=== PATIENT | male | born 1950 | race Caucasian/White ===

== ENCOUNTER → 2018-09-17 | Outpatient (CLI) | payer OTHER | LOC: LAB 11:21 | PROVIDERS: ATTEND Internal Medicine Critical Care Medicine | DX: R06.00 Dyspnea, unspecified (principal); J30.9 Allergic rhinitis, unspecified; R06.89 Other abnormalities of breathing; R05 Cough; R91.8 Other nonspecific abnormal finding of lung field; J98.4 Other disorders of lung; J43.9 Emphysema, unspecified | CPT/HCPCS: 36600 ==

== ENCOUNTER 2018-10-29 12:51 | Emergency (ER) | payer MEDICARE, OTHER ==
[~2018-10-29] VITALS: Ht 186.7 cm; Wt 102.1 kg
[2018-10-29] MEDS ORDERED: morphine INJ 10 MG/ML 1ML (SYR OR VIAL) IVP STA ×2 (13:31→14:15)
[2018-10-29] MEDS ORDERED: ONDANSETRON 4 MG/2 ML (SDV) Z0FRAN IVP ONE (13:45)
[2018-10-29] MEDS ORDERED: DEXAMETHASONE 4 MG/ML SDV (DECADRON) IV ONE (14:00)
--- NOTE | 2018-10-29 14:03 | Diagnostic Imaging Report ---
PROCEDURE: CT head without contrast. TECHNIQUE: Multiple contiguous axial images were obtained through the brain without the use of intravenous contrast. Auto Exposure Controls were utilized during the CT exam to meet ALARA standards for radiation dose reduction. INDICATION: Headache and vomiting. No comparison available. Findings: There are multifocal regions of abnormal vasogenic edema within the brain. There is an apparent mass within this vasogenic edema within the posterior right temporal lobe measuring 12 mm. There also appears to be a mass within the left centrum semiovale the left frontal lobe measuring 11 mm. There is likely a mass demonstrated within the left occipital lobe given the presence of vasogenic edema at that location. If no clinical contraindications, MRI is recommended for further assessment. The primary consideration is that of metastatic disease. There additionally are likely chronic microvascular changes present with no white matter. There is mild age-appropriate volume loss. There is no midline shift. There is no hydrocephalus. Posterior fossa demonstrates an apparent small mass within the right cerebellum with some adjacent vasogenic edema. There is no significant distortion of the fourth ventricle. Mastoid air cells are clear. The paranasal sinuses clear. Orbital contents unremarkable. No definitive calvarial lesions are evident. Impression: 1. Multifocal intracranial mass lesions with surrounding vasogenic edema. Given the multiplicity of lesions, this is favored to be reflective of metastatic disease. If the patient has no clinical contraindication, assessment with MRI with and without contrast is recommended. 2. CT imaging of the chest, abdomen and pelvis could also be considered to evaluate for a primary. Findings were called to Dr. Swan in the [place] emergency department at 1:57 PM. Dictated by: Dictated on workstation # [id number]
[2018-10-29] MEDS ORDERED: DEXAMETHASONE 10 MG/ML (DECADRON) 1 ML VIAL ONE (14:12)
[2018-10-29 14:14] LABS: HEMATOCRIT 35 % (40-54); HEMOGLOBIN 10.7 G/DL (13.3-17.7); MEAN CORPUSCULAR HEMOGLOBIN 26 PG (25-34); MEAN CORPUSCULAR HGB CONC 31 G/DL (32-36); MEAN CORPUSCULAR VOLUME 86 FL (80-99); MEAN PLATELET VOLUME 9.7 FL (7.4-10.4); NEUTROPHILS % (AUTO) 78 % (42-75); PLATELET COUNT 444 10^3/uL (130-400); RED CELL DISTRIBUTION WIDTH 14.3 % (10.0-14.5); WHITE BLOOD COUNT 15.8 10^3/uL (4.3-11.0)
[2018-10-29 14:15] LABS: BASOPHILS # (AUTO) 0.1 10^3/uL (0.0-0.1); BASOPHILS % (AUTO) 1 % (0-10); EOSINOPHILS # (AUTO) 0.1 10^3/uL (0.0-0.3); EOSINOPHILS % (AUTO) 1 % (0-10); LYMPHOCYTES # (AUTO) 1.9 X 10^3 (1.0-4.0); LYMPHOCYTES % (AUTO) 12 % (12-44); MONOCYTES # (AUTO) 1.4 X 10^3 (0.0-1.0); MONOCYTES % (AUTO) 9 % (0-12); NEUTROPHILS # (AUTO) 12.3 X 10^3 (1.8-7.8)
[2018-10-29] MEDS ORDERED: DEXAMETHASONE 10 MG/ML (DECADRON) 1 ML VIAL IV ONE (14:15)
[2018-10-29 14:24] LABS: PROTHROMBIN TIME PATIENT 13.6 SEC (12.2-14.7)
[2018-10-29 14:31] LABS: BAND NEUTROPHILS 1 %; BASOPHILS % (MANUAL) 2 %; BUN/CREATININE RATIO 20; CARBON DIOXIDE 15 MMOL/L (21-32); CHLORIDE 102 MMOL/L (98-107); CREATININE SERUM 0.89 MG/DL (0.60-1.30); EOSINOPHILS % (MANUAL) 0 %; GFR ESTIMATED > 60; GLUCOSE 106 MG/DL (70-105); LYMPHOCYTES % (MANUAL) 14 %; MONOCYTES % (MANUAL) 7 %; NEUTROPHILS % (MANUAL) 76 %; POTASSIUM 3.9 MMOL/L (3.6-5.0); RBC MORPH NORMAL; SODIUM 138 MMOL/L (135-145)
--- NOTE | 2018-10-29 15:21 | NUR ---
[facility] accepted pt to transfer to [facility].
--- NOTE | 2018-10-29 15:22 | NUR ---
SPO2 88-89%, so pt placed on 2 liters via nasal canula
--- NOTE | 2018-10-29 15:34 | ED Headache ---
General Chief Complaint: Head/Cervical Problems Stated Complaint: HEADACHE,VOMITING Nursing Triage Note: Pt arrived by private vehicle for chief complaint of headache and vomiting. Pt is alert and oriented at time of arrival, but needed assistance getting out of car and wheelchair was used. Pt stated he had slight headache a few days ago and then it got worse. Pt stated his frontal head hurts. He has vomited once today. He took 6 excedrin migraine to try to help headache. Pt stated pain is a 7/8. Nursing Sepsis Screen: No Definite Risk Source: patient, family Exam Limitations: no limitations History of Present Illness Date Seen by Provider: October 29, 2018 Time Seen by Provider: 13:10 Initial Comments This is a 68 y/o m who presents to the ED for evaluation of headache. Pt reports progressive headache over the past 2 days, localized behind both eyes, pressure/achy, 8/10. Has taken Excedrin migraine x6 tabs in the past 6-8 hrs with no relief. no photophobia no vision changes. Denies previous history of headaches/migraines. Progressive intractable nausea/vomiting since earlier this am. No aggravating/alleviating factors. Allergies and Home Medications Allergies Coded Allergies: No Known Drug Allergies (Unverified , 10/29/18) Patient Home Medication List Home Medication List Reviewed: Yes Review of Systems Review of Systems Constitutional: No chills, No fever Eyes: Denies Blindness, Denies Blurred Vision, Denies Pain, Denies Photophobia Respiratory: No cough, No short of breath, No stridor, No wheezing Cardiovascular: No chest pain, No edema, No syncope Gastrointestinal: No abdominal pain; nausea, vomiting Genitourinary: No dysuria, No frequency, No hematuria Musculoskeletal: No back pain, No gout, No joint pain, No muscle pain, No muscle stiffness Skin: No pruritus, No rash Psychiatric/Neurological: Denies Anxiety, Denies Depressed; Headache; Denies Numbness, Denies Paresthesia, Denies Seizure, Denies Tingling, Denies Weakness Past Llhjmrq-Irhmuj-Eqxxir Hx Patient Social History Alcohol Use: Denies Use Recreational Drug Use: No Smoking Status: Former Smoker 2nd Hand Smoke Exposure: No Recent Foreign Travel: No Contact w/Someone Who Travel: No Recent Infectious Disease Expo: No Recent Hopitalizations: No Physical Abuse: No Sexual Abuse: No Mistreated: No Fear: No Seasonal Allergies Seasonal Allergies: No Past Medical History Surgeries: Yes (right half lobectomy ) Appendectomy, Tonsillectomy Respiratory: Yes (right lobectomy) Cardiac: Yes High Cholesterol, Hypertension Neurological: Yes Seizure Disorder Genitourinary: Yes Prostate Problems Gastrointestinal: Yes Gastroesophageal Reflux Musculoskeletal: No Endocrine: No HEENT: No Cancer: No Psychosocial: No Integumentary: No Blood Disorders: No Physical Exam Vital Signs Vital Signs - First Documented 10/29/18 10/29/18 13:09 15:22 Temp 97.2 Pulse 86 Resp 24 B/P (MAP) 161/69 (99) Pulse Ox 96 O2 Delivery Room Air O2 Flow Rate 2.00 Capillary Refill : Less Than 3 Seconds Height, Weight, BMI Height: 6'1.50" Weight: 225lbs. 0oz. 102.275592sz; BMI Method:Stated General Appearance: WD/WN, other (Appears stated age, actively vomiting throughout H&P. ) HEENT: PERRL/EOMI Neck: non-tender, full range of motion Cardiovascular: regular rate, rhythm, no edema, no murmur Respiratory: lungs clear, normal breath sounds, no respiratory distress Gastrointestinal: normal bowel sounds, soft Extremities: normal range of motion Psychiatric: alert, oriented x 3 Crainal Nerves: No normal hearing (chronically hearing impaired. No hearing aids in place); normal speech, PERRL; No facial asymmetry, No facial droop, No facial paresthesias, No facial weakness, No tongue deviation to R, No tongue deviation to L Coordination/Gait: normal finger to nose, other (Unable to evaluate gait 2/2 intractable vomiting ) Motor/Sensory: no motor deficit, no sensory deficit Skin: normal color, warm/dry Progress/Results/Core Measures Results/Orders Lab Results Laboratory Tests Test 10/29/18 14:00 Range/Units White Blood Count 15.8 H 4.3-11.0 10^3/uL Red Blood Count 4.06 L 4.35-5.85 10^6/uL Hemoglobin 10.7 L 13.3-17.7 G/DL Hematocrit 35 L 40-54 % Mean Corpuscular Volume 86 80-99 FL Mean Corpuscular Hemoglobin 26 25-34 PG Mean Corpuscular Hemoglobin Concent 31 L 32-36 G/DL Red Cell Distribution Width 14.3 10.0-14.5 % Platelet Count 444 H 130-400 10^3/uL Mean Platelet Volume 9.7 7.4-10.4 FL Neutrophils (%) (Auto) 78 H 42-75 % Lymphocytes (%) (Auto) 12 12-44 % Monocytes (%) (Auto) 9 0-12 % Eosinophils (%) (Auto) 1 0-10 % Basophils (%) (Auto) 1 0-10 % Neutrophils # (Auto) 12.3 H 1.8-7.8 X 10^3 Lymphocytes # (Auto) 1.9 1.0-4.0 X 10^3 Monocytes # (Auto) 1.4 H 0.0-1.0 X 10^3 Eosinophils # (Auto) 0.1 0.0-0.3 10^3/uL Basophils # (Auto) 0.1 0.0-0.1 10^3/uL Neutrophils % (Manual) 76 % Lymphocytes % (Manual) 14 % Monocytes % (Manual) 7 % Eosinophils % (Manual) 0 % Basophils % (Manual) 2 % Band Neutrophils 1 % Blood Morphology Comment NORMAL Prothrombin Time 13.6 12.2-14.7 SEC INR Comment 1.0 0.8-1.4 Activated Partial Thromboplast Time 34 24-35 SEC Sodium Level 138 135-145 MMOL/L Potassium Level 3.9 3.6-5.0 MMOL/L Chloride Level 102 98-107 MMOL/L Carbon Dioxide Level 15 L 21-32 MMOL/L Anion Gap 21 H 5-14 MMOL/L Blood Urea Nitrogen 18 7-18 MG/DL Creatinine 0.89 0.60-1.30 MG/DL Estimat Glomerular Filtration Rate > 60 BUN/Creatinine Ratio 20 Glucose Level 106 H 70-105 MG/DL Calcium Level 9.0 8.5-10.1 MG/DL My Orders Orders - KEITHLY,JOHANA T DO Ct Head Wo (10/29/18 13:31) Morphine Injection (Morphine Injection (10/29/18 13:31) Ondansetron Injection (Zofran Injectio (10/29/18 13:45) Cbc And Manual Diff (10/29/18 13:34) Basic Metabolic Panel (10/29/18 13:34) Partial Thromboplastin Time (10/29/18 13:34) Protime With Inr (10/29/18 13:34) Dexamethasone Injection (Decadron Inject (10/29/18 14:15) Morphine Injection (Morphine Injection (10/29/18 14:15) Dexamethasone Injection (Decadron Inject (10/29/18 14:12) Medications Given in ED Current Medications Medications Dose Ordered Sig/Emma Route Start Time Stop Time Status Last Admin Dose Admin Dexamethasone Sodium Phosphate 10 mg ONCE ONCE IV 10/29/18 14:15 10/29/18 14:16 DC 10/29/18 14:25 10 MG Ondansetron HCl 8 mg ONCE ONCE IVP 10/29/18 13:45 10/29/18 13:46 DC 10/29/18 13:57 8 MG Vital Signs/I&O 10/29/18 10/29/18 10/29/18 13:09 14:38 15:22 Temp 97.2 100.4 Pulse 86 86 Resp 24 22 B/P (MAP) 161/69 (99) 167/71 (103) Pulse Ox 96 95 94 O2 Delivery Room Air Room Air Nasal Cannula O2 Flow Rate 2.00 Blood Pressure Mean: 103 Progress Progress Note : Progress Note 1410: notified by Radiology of CT as above. Pt continues to have periods of vomiting despite medications. Will continue to medicate. No focal neurological findings. Will admit for continued evaluation/symptom control. Pt and family requesting transfer to [facility]. Pt will require NSG eval and these capability are available locally. Discussed with Dr. Servin in ED at [facility] who accepted the pt. Pt given IV Decadron. Pt has been hemodynamically stable while in the ED. 1547: Transportation arranged. Pt leaving shortly. Symptoms controlled. Diagnostic Imaging Comments CT Head Multifocal intracranial mass lesions with surrounding vasogenic edema. Given the multiplicity of lesions, this is favored to be reflective of metastatic disease. If the patient has no clinical contraindiciation, assessment with MRI with and without contrast is recommended. CT imaging of the chest, abdomen and pelvis could also be considered to evaluate for a primary. Departure Impression Primary Impression: Headache Additional Impression: Brain metastases Disposition: XFER SHT-TRM HOSP Condition: Improved Transfer Time Spoke to Accepting Phy: 15:48 Transfer Progress Notes leaving with transportation Departure-Patient Inst. Referrals: NO,LOCAL PHYSICIAN (PCP/Family) Primary Care Physician JOHANA GONZALEZ DO October 29, 2018 15:34
[2018-10-29 15:39] VITALS: BP 138/51
--- NOTE | 2018-10-29 15:59 | NUR ---
Report was given to [facility] at this time. Care was transferred.
--- NOTE | 2018-10-29 16:01 | NUR ---
Call to Shyla LARSEN, reported that [facility] is in route with pt departing now.
== END 2018-10-29 15:59 | disposition short-term general hospital (02) ==
LOC: EDUNIT# 12:51 → ER FS 12:52
DX: R51 Headache (principal); C71.9 Malignant neoplasm of brain, unspecified; C79.9 Secondary malignant neoplasm of unspecified site; E78.00 Pure hypercholesterolemia, unspecified; I10 Essential (primary) hypertension; G40.909 Epilepsy, unspecified, not intractable, without status epilepticus; K21.9 Gastro-esophageal reflux disease without esophagitis; Z86.69 Personal history of other diseases of the nervous system and sense organs; Z87.891 Personal history of nicotine dependence; Z90.49 Acquired absence of other specified parts of digestive tract; Z90.89 Acquired absence of other organs; Z90.2 Acquired absence of lung [part of]
CPT/HCPCS: 36415; 70450; 80048; 85007; 85027; 85610; 85730; 96374; 96375

== ENCOUNTER 2018-11-21 09:37 | Emergency (ER) | payer MEDICARE, OTHER ==
[~2018-11-21] VITALS: Ht 188 cm; Wt 90.7 kg
[2018-11-21] MEDS ORDERED: HYDROcodone/APAP 5 MG/325 MG (LORTAB) TAB ONE (10:19)
[2018-11-21 11:35] VITALS: BP 103/44
[2018-11-21 13:08] LABS: HEMATOCRIT 30 % (40-54); HEMOGLOBIN 9.3 G/DL (13.3-17.7); LYMPHOCYTES % (AUTO) 18 % (12-44); MEAN CORPUSCULAR HEMOGLOBIN 26 PG (25-34); MEAN CORPUSCULAR HGB CONC 31 G/DL (32-36); MEAN CORPUSCULAR VOLUME 84 FL (80-99); MEAN PLATELET VOLUME 9.9 FL (7.4-10.4); MONOCYTES % (AUTO) 12 % (0-12); NEUTROPHILS % (AUTO) 67 % (42-75); PLATELET COUNT 351 10^3/uL (130-400); WHITE BLOOD COUNT 7.8 10^3/uL (4.3-11.0)
[2018-11-21 13:09] LABS: BASOPHILS % (AUTO) 1 % (0-10); EOSINOPHILS # (AUTO) 0.1 10^3/uL (0.0-0.3); EOSINOPHILS % (AUTO) 2 % (0-10); LYMPHOCYTES # (AUTO) 1.4 X 10^3 (1.0-4.0); NEUTROPHILS # (AUTO) 5.3 X 10^3 (1.8-7.8)
[2018-11-21 13:10] LABS: BUN/CREATININE RATIO 7; CALCIUM 8.6 MG/DL (8.5-10.1); CARBON DIOXIDE 20 MMOL/L (21-32); CHLORIDE 101 MMOL/L (98-107); CREATININE SERUM 0.74 MG/DL (0.60-1.30); GFR ESTIMATED > 60; GLUCOSE 99 MG/DL (70-105); POTASSIUM 3.8 MMOL/L (3.6-5.0); SODIUM 136 MMOL/L (135-145)
[2018-11-21] MEDS ORDERED: HYDROcodone/APAP 5 MG/325 MG (LORTAB) TAB PO ONE (13:30)
--- OUTSIDE RECORDS SUMMARY | 2018-11-21 21:17 | XMS REPORT | Continuity of Care Document ---
Author Organization Unknown Address Unknown Allergies Active Description Code Type Severity Reaction Onset Reported/Identified Relationship to Patient Clinical Status Yes No Known Drug Allergies [id number] Drug Allergy Unknown N/A 10/29/2018 Medications There is no data. Problems Date Dx Coded Attending Type Code Diagnosis Diagnosed By 09/18/2018 GISELLE FLEMING DO, Ot J30.9 ALLERGIC RHINITIS, UNSPECIFIED 09/18/2018 GISELLE FLEMING DO Ot J43.9 EMPHYSEMA, UNSPECIFIED 09/18/2018 GISELLE FLEMING DO Ot J98.4 OTHER DISORDERS OF LUNG 09/18/2018 GISELLE FLEMING DO Ot R05 COUGH 09/18/2018 GISELLE FLEMING DO Ot R06.00 DYSPNEA, UNSPECIFIED 09/18/2018 GISELLE FLEMING DO Ot R06.89 OTHER ABNORMALITIES OF BREATHING 09/18/2018 GISELLE FLEMING DO Ot R91.8 OTHER NONSPECIFIC ABNORMAL FINDING OF ANGEL LUIS 10/29/2018 GISELLE FLEMING DO Ot J30.9 ALLERGIC RHINITIS, UNSPECIFIED 10/29/2018 GISELLE FLEMING DO Ot J43.9 EMPHYSEMA, UNSPECIFIED 10/29/2018 GISELLE FLEMING DO Ot J98.4 OTHER DISORDERS OF LUNG 10/29/2018 GISELLE FLEMING DO Ot R05 COUGH 10/29/2018 GISELLE FLEMING DO Ot R06.00 DYSPNEA, UNSPECIFIED 10/29/2018 GISELLE FLEMING DO Ot R06.89 OTHER ABNORMALITIES OF BREATHING 10/29/2018 GISELLE FLEMING DO Ot R91.8 OTHER NONSPECIFIC ABNORMAL FINDING OF ANGEL LUIS 10/29/2018 JOHANA GONZALEZ DO T Ot C71.9 MALIGNANT NEOPLASM OF BRAIN, UNSPECIFIED 10/29/2018 JT GONZALEZ DOINA T Ot C79.9 SECONDARY MALIGNANT NEOPLASM OF UNSPECIF 10/29/2018 JOHANA GONZALEZ DO T Ot E78.00 PURE HYPERCHOLESTEROLEMIA, UNSPECIFIED 10/29/2018 LISA DOJTJOHANA T Ot G40.909 EPILEPSY, UNSP, NOT INTRACTABLE, WITHOUT 10/29/2018 KHAILY DO JOHANA T Ot I10 ESSENTIAL (PRIMARY) HYPERTENSION 10/29/2018 KHAILY DOJTJOHANA T Ot K21.9 GASTRO-ESOPHAGEAL REFLUX DISEASE WITHOUT 10/29/2018 HKAILY DOJTJOHANA T Ot R51 HEADACHE 10/29/2018 JT GONZALEZ DOINA T Ot Z86.69 PERSONAL HISTORY OF DIS OF THE NERVOUS S 10/29/2018 JT GONZALEZ DOINA T Ot Z87.891 PERSONAL HISTORY OF NICOTINE DEPENDENCE 10/29/2018 LISA DOJTJOHANA T Ot Z90.2 ACQUIRED ABSENCE OF LUNG [PART OF] 10/29/2018 LISA DOJTJOHANA T Ot Z90.49 ACQUIRED ABSENCE OF OTHER SPECIFIED PART 10/29/2018 LISA AGUILAR JOHANA T Ot Z90.89 ACQUIRED ABSENCE OF OTHER ORGANS 11/02/2018 JT GONZALEZ DOINA T Ot C71.9 MALIGNANT NEOPLASM OF BRAIN, UNSPECIFIED 11/02/2018 KHAILY DO JOHANA T Ot C79.9 SECONDARY MALIGNANT NEOPLASM OF UNSPECIF 11/02/2018 JT GONZALEZ DOINA T Ot E78.00 PURE HYPERCHOLESTEROLEMIA, UNSPECIFIED 11/02/2018 LISA DOJTJOHANA T Ot G40.909 EPILEPSY, UNSP, NOT INTRACTABLE, WITHOUT 11/02/2018 KHAILY DO JOHANA T Ot I10 ESSENTIAL (PRIMARY) HYPERTENSION 11/02/2018 JT GONZALEZ DOINA T Ot K21.9 GASTRO-ESOPHAGEAL REFLUX DISEASE WITHOUT 11/02/2018 KHAILY JT AGUILARINA T Ot R51 HEADACHE 11/02/2018 JT GONZALEZ DOINA T Ot Z86.69 PERSONAL HISTORY OF DIS OF THE NERVOUS S 11/02/2018 JT GONZALEZ DOINA T Ot Z87.891 PERSONAL HISTORY OF NICOTINE DEPENDENCE 11/02/2018 JT GONZALEZ DOINA T Ot Z90.2 ACQUIRED ABSENCE OF LUNG [PART OF] 11/02/2018 LISA DO JOHANA T Ot Z90.49 ACQUIRED ABSENCE OF OTHER SPECIFIED PART 11/02/2018 LISA AGUILAR JOHANA T Ot Z90.89 ACQUIRED ABSENCE OF OTHER ORGANS Procedures There is no data. Results Test Result Range Arterial blood gas measurement - 09/17/18 11:44 Blood pCO2 31 mm[Hg] 35-45 Blood pO2 83 mm[Hg] 79-93 Arterial blood bicarbonate measurement (moles/volume) 17 mmol/L 23-27 Arterial blood base excess by calculation -6.9 mmol/L -2.5-2.5 Arterial blood oxygen saturation measurement 97 % 94-100 * Inhaled oxygen flow rate ROOM AIR NRG Arterial blood pH measurement with patient temperature correction 7.37 7.37-7.43 Arterial blood carbon dioxide, total measurement (moles/volume) 18.3 mmol/L 21.0-31.0 Body site RT BRACH NRG Assessment of wrist artery patency prior to arterial puncture YES-POS NRG Setting of ventilation mode NO NRG Measurement of body temperature 98.1 NRG Blood CBC with ordered manual differential panel - 10/29/18 14:00 Blood leukocytes automated count (number/volume) 15.8 10*3/uL 4.3-11.0 Blood erythrocytes automated count (number/volume) 4.06 10*6/uL 4.35-5.85 Venous blood hemoglobin measurement (mass/volume) 10.7 g/dL 13.3-17.7 Blood hematocrit (volume fraction) 35 % 40-54 Automated erythrocyte mean corpuscular volume 86 [foz_us] 80-99 Automated erythrocyte mean corpuscular hemoglobin (mass per erythrocyte) 26 pg 25-34 Automated erythrocyte mean corpuscular hemoglobin concentration measurement (mass/volume) 31 g/dL 32-36 Automated erythrocyte distribution width ratio 14.3 % 10.0- 14.5 Automated blood platelet count (count/volume) 444 10*3/uL 130-400 Automated blood platelet mean volume measurement 9.7 [foz_us] 7.4-10.4 Automated blood neutrophils/100 leukocytes 78 % 42-75 Automated blood lymphocytes/100 leukocytes 12 % 12-44 Blood monocytes/100 leukocytes 7 % NRG Automated blood eosinophils/100 leukocytes 1 % 0-10 Automated blood basophils/100 leukocytes 1 % 0-10 Blood neutrophils automated count (number/volume) 12.3 10*3 1.8-7.8 Blood lymphocytes automated count (number/volume) 1.9 10*3 1.0-4.0 Blood monocytes automated count (number/volume) 1.4 10*3 0.0- 1.0 Automated eosinophil count 0.1 10*3/uL 0.0-0.3 Automated blood basophil count (count/volume) 0.1 10*3/uL 0.0-0.1 Manual blood segmented neutrophils/100 leukocytes 76 % NRG Blood band neutrophils/100 leukocytes 1 % NRG Manual blood lymphocytes/100 leukocytes 14 % NRG Manual eosinophils/100 leukocytes in nose 0 % NRG Manual blood basophils/100 leukocytes 2 % NRG Blood erythrocyte morphology finding identification NORMAL NRG PT panel in platelet poor plasma by coagulation assay - 10/29/18 14:00 Prothrombin time (PT) in platelet poor plasma by coagulation assay 13.6 s 12.2-14.7 INR in platelet poor plasma or blood by coagulation assay 1.0 0.8-1.4 Activated partial thromboplastin time (aPTT) in platelet poor plasma bycoagulation assay - 10/29/18 14:00 Activated partial thromboplastin time (aPTT) in platelet poor plasma bycoagulation assay 34 s 24-35 Whole blood basic metabolic panel - 10/29/18 14:00 Serum or plasma sodium measurement (moles/volume) 138 mmol/L 135-145 Serum or plasma potassium measurement (moles/volume) 3.9 mmol/L 3.6-5.0 Serum or plasma chloride measurement (moles/volume) 102 mmol/L 98-107 Carbon dioxide 15 mmol/L 21-32 Serum or plasma anion gap determination (moles/volume) 21 mmol/L 5-14 Serum or plasma urea nitrogen measurement (mass/volume) 18 mg/dL 7-18 Serum or plasma creatinine measurement (mass/volume) 0.89 mg/dL 0.60-1.30 Serum or plasma urea nitrogen/creatinine mass ratio 20 NRG Serum or plasma creatinine measurement with calculation of estimated glomerular filtration rate > NRG Serum or plasma glucose measurement (mass/volume) 106 mg/dL 70-105 Serum or plasma calcium measurement (mass/volume) 9.0 mg/dL 8.5-10.1 Complete blood count (CBC) with automated white blood cell (WBC) differential - 11/21/18 10:35 Blood leukocytes automated count (number/volume) 7.8 10*3/uL 4.3-11.0 Blood erythrocytes automated count (number/volume) 3.56 10*6/uL 4.35-5.85 Venous blood hemoglobin measurement (mass/volume) 9.3 g/dL 13.3-17.7 Blood hematocrit (volume fraction) 30 % 40-54 Automated erythrocyte mean corpuscular volume 84 [foz_us] 80-99 Automated erythrocyte mean corpuscular hemoglobin (mass per erythrocyte) 26 pg 25-34 Automated erythrocyte mean corpuscular hemoglobin concentration measurement (mass/volume) 31 g/dL 32-36 Automated erythrocyte distribution width ratio 15.0 % 10.0- 14.5 Automated blood platelet count (count/volume) 351 10*3/uL 130-400 Automated blood platelet mean volume measurement 9.9 [foz_us] 7.4-10.4 Automated blood neutrophils/100 leukocytes 67 % 42-75 Automated blood lymphocytes/100 leukocytes 18 % 12-44 Blood monocytes/100 leukocytes 12 % 0-12 Automated blood eosinophils/100 leukocytes 2 % 0-10 Automated blood basophils/100 leukocytes 1 % 0-10 Blood neutrophils automated count (number/volume) 5.3 10*3 1.8-7.8 Blood lymphocytes automated count (number/volume) 1.4 10*3 1.0-4.0 Blood monocytes automated count (number/volume) 1.0 10*3 0.0- 1.0 Automated eosinophil count 0.1 10*3/uL 0.0-0.3 Automated blood basophil count (count/volume) 0.0 10*3/uL 0.0-0.1 Whole blood basic metabolic panel - 11/21/18 10:35 Serum or plasma sodium measurement (moles/volume) 136 mmol/L 135-145 Serum or plasma potassium measurement (moles/volume) 3.8 mmol/L 3.6-5.0 Serum or plasma chloride measurement (moles/volume) 101 mmol/L 98-107 Carbon dioxide 20 mmol/L 21-32 Serum or plasma anion gap determination (moles/volume) 15 mmol/L 5-14 Serum or plasma urea nitrogen measurement (mass/volume) 5 mg/dL 7-18 Serum or plasma creatinine measurement (mass/volume) 0.74 mg/dL 0.60-1.30 Serum or plasma urea nitrogen/creatinine mass ratio 7 NRG Serum or plasma creatinine measurement with calculation of estimated glomerular filtration rate > NRG Serum or plasma glucose measurement (mass/volume) 99 mg/dL 70-105 Serum or plasma calcium measurement (mass/volume) 8.6 mg/dL 8.5-10.1 Encounters ACCT No. Visit Date/Time Discharge Status Pt. Type Provider Facility Loc./Unit Complaint [id number] 11/20/2018 16:45:00 [facility] [id number] 10/29/2018 12:52:00 10/29/2018 15:59:00 DIS Emergency JOHANA GONZALEZ DO [facility] ER FS HEADACHE,VOMITING [id number] 09/17/2018 12:15:00 09/17/2018 23:59:59 CLS Preadmit GISELLE FLEMING DO [facility] RAD DYSPNEA, UNSPECIFIED [id number] 09/17/2018 11:21:00 09/17/2018 23:59:59 CLS Outpatient GISELLE FLEMING DO [facility] LAB DYSPNEA [id number] 11/21/2018 13:10:00 Document Registration [id number] 09/17/2018 11:54:00 Document Registration
== END 2018-11-21 13:35 | disposition short-term general hospital (02) ==
LOC: ER FS 09:38 → EDUNIT# 12:37 → ER FS 13:35
DX: T81.43XA Infection following a procedure, organ and space surgical site, initial encounter (principal); G06.0 Intracranial abscess and granuloma
CPT/HCPCS: 36415; 80048; 85025

== ENCOUNTER 2018-11-29 13:55 | Outpatient (CLI) | payer MEDICARE, OTHER ==
[~2018-11-29] VITALS: Ht 188 cm; Wt 90.7 kg
[2018-11-29 13:00] VITALS: BP 103/69
--- NOTE | 2018-11-29 14:53 | Diagnostic Imaging Report ---
INDICATION: PICC line placement. TIME OF EXAM: 02:42 p.m. FINDINGS: Right upper extremity PICC line has the tip in good position at the SVC right atrial junction. There is no pneumothorax. Surgical clips overlie the lower right chest. There is some scarring or atelectasis in right midlung. No effusion is seen. IMPRESSION: Satisfactory PICC line placement. Dictated by: Dictated on workstation # [id number]
== END 2018-11-29 15:00 | disposition home or self-care (01) ==
LOC: SDC 13:55
PROVIDERS: ATTEND Nurse Practitioner Family
DX: C79.31 Secondary malignant neoplasm of brain (principal); C79.49 Secondary malignant neoplasm of other parts of nervous system; G06.0 Intracranial abscess and granuloma
CPT/HCPCS: 36569; 71045; 76937

== ENCOUNTER → 2018-12-05 | Outpatient (CLI) | payer MEDICARE, OTHER ==
[2018-12-05 16:51] LABS: CREATININE SERUM 0.76 MG/DL (0.60-1.30); GFR ESTIMATED > 60
== END ==
LOC: LAB FS 16:07
PROVIDERS: ATTEND Pediatrics
DX: Z01.812 Encounter for preprocedural laboratory examination (principal)
CPT/HCPCS: 36415; 82565; 84520

== ENCOUNTER → 2018-12-11 | Outpatient (CLI) | payer MEDICARE, OTHER ==
[~2018-12-11] MED LIST: GADOBUTROL 10 MMOL/10 ML (GADAVIST) VIAL IV ONE
--- NOTE | 2018-12-11 11:18 | Diagnostic Imaging Report ---
PROCEDURE: MR imaging of the brain without contrast. TECHNIQUE: Multiplanar, multisequence MR imaging of the brain was performed without contrast. INDICATION: Prior abnormal head CT. Confusion. FINDINGS: Patient was unable to complete the examination. Post contrast imaging was not acquired. Gradient imaging also not obtained. Limited axial T1 could be obtained. On FLAIR imaging, there are extensive regions of abnormal T2 hyperintense signal with findings which appear compatible with combination of microvascular disease as well as vasogenic edema. There is a large degree of vasogenic edema within the right temporal lobe which surrounds a small lesion now measuring 8 mm with some central diffusion hyperintensity associated with a small mural nodule. This previously measured 12 mm. There is also extensive ongoing vasogenic edema in the left occipital lobe and there appears to be a likely intra-axial lesion posterior to the left occipital horn. There appears to be a new overlying calvarial defect that may relate to recent biopsy. There is vasogenic edema in the high right parietal lobe with an underlying 5 mm lesion and there is vasogenic edema demonstrated within the left superior frontal lobe where there appears to be a 6 mm lesion within the left young radiata. The diffusion signal demonstrates some linear diffusion hyperintensity within the cortex of the right frontal lobe that may reflect recent acute or subacute cortical ischemic changes. There are no findings evident to suggest acute hemorrhage. There is no mass effect or shift. There is no hydrocephalus. There is no abnormal extra-axial fluid collection. There is a small degree of fluid within the right mastoids. The paranasal sinuses appear clear. The orbital contents are unremarkable. Major expected vascular flow voids appear preserved. IMPRESSION: 1. Multifocal intra-axial intracranial lesions with surrounding vasogenic edema as described. Given that these were initially present in October 2018 and some of the lesions now appear smaller, this is favored to be reflective of metastatic disease with an infectious process felt to be very unlikely given this timeframe. 2. There has been apparent prior biopsy performed through a left occipital gareth hole. 3. The findings are superimposed on advanced background chronic microvascular changes within the white matter and there also appear to be some acute or subacute cortical ischemic changes within the right frontal lobe. 4. No evidence of acute hemorrhage or hydrocephalus. 5. Please note, post contrast imaging was not performed on this examination as requested as the patient was unable to complete the exam. Dictated by: Dictated on workstation # [id number]
== END ==
LOC: RAD 08:22
PROVIDERS: ATTEND Internal Medicine
DX: G93.89 Other specified disorders of brain (principal); G06.0 Intracranial abscess and granuloma
CPT/HCPCS: 70551

== ENCOUNTER → 2019-01-09 | Outpatient (CLI) | payer MEDICARE ==
--- NOTE | 2019-01-09 11:45 | Diagnostic Imaging Report ---
Indication: Right knee injury from a fall 3 views of the right knee show no fracture, dislocation or other acute abnormalities. Impression: Negative right knee Dictated by: Dictated on workstation # [id number]
--- NOTE | 2019-01-09 12:02 | Diagnostic Imaging Report ---
Indication: Fall and right hip pain. Time of exam 10:01 AM 2 views right hip show normal femoral acetabular alignment. Joint space maintained. Femoral head and neck are intact. No fractures are seen. Impression: No acute bony abnormality is detected. Dictated by: Dictated on workstation # [id number]
== END ==
LOC: RAD 09:15
PROVIDERS: ATTEND Pediatrics
DX: S89.91XA Unspecified injury of right lower leg, initial encounter (principal); M25.551 Pain in right hip; W19.XXXA Unspecified fall, initial encounter
CPT/HCPCS: 73502; 73562

== ENCOUNTER → 2019-02-25 | Outpatient (CLI) | payer MEDICARE, MEDICAID ==
[2019-02-25 15:30] LABS: ALANINE AMINOTRANSFERASE 54 U/L (0-55); ALKALINE PHOSPHATASE 104 U/L (40-136); BILIRUBIN,TOTAL 0.2 MG/DL (0.1-1.0); BUN/CREATININE RATIO 23; CALCIUM 9.3 MG/DL (8.5-10.1); CARBON DIOXIDE 22 MMOL/L (21-32); CHLORIDE 109 MMOL/L (98-107); CREATININE SERUM 0.87 MG/DL (0.60-1.30); GFR ESTIMATED > 60; GLUCOSE 112 MG/DL (70-105); POTASSIUM 4.9 MMOL/L (3.6-5.0); SODIUM 141 MMOL/L (135-145); TOTAL PROTEIN 6.7 GM/DL (6.4-8.2)
[2019-02-25 15:41] LABS: WHITE BLOOD COUNT 8.5 10^3/uL (4.3-11.0)
[2019-02-25 15:42] LABS: BASOPHILS # (AUTO) 0.1 10^3/uL (0.0-0.1); BASOPHILS % (AUTO) 1 % (0-10); EOSINOPHILS # (AUTO) 1.2 10^3/uL (0.0-0.3); EOSINOPHILS % (AUTO) 14 % (0-10); HEMATOCRIT 37 % (40-54); HEMOGLOBIN 11.8 G/DL (13.3-17.7); LYMPHOCYTES # (AUTO) 2.3 X 10^3 (1.0-4.0); LYMPHOCYTES % (AUTO) 27 % (12-44); MEAN CORPUSCULAR HEMOGLOBIN 30 PG (25-34); MEAN CORPUSCULAR HGB CONC 32 G/DL (32-36); MEAN CORPUSCULAR VOLUME 93 FL (80-99); MEAN PLATELET VOLUME 10.4 FL (7.4-10.4); MONOCYTES % (AUTO) 11 % (0-12); NEUTROPHILS # (AUTO) 3.9 X 10^3 (1.8-7.8); NEUTROPHILS % (AUTO) 46 % (42-75); PLATELET COUNT 306 10^3/uL (130-400); RED CELL DISTRIBUTION WIDTH 14.3 % (10.0-14.5)
[2019-02-25 15:43] LABS: ERYTHROCYTE SEDIMENTATION RATE 21 MM/HR (0-30)
[2019-02-25 15:44] LABS: BAND NEUTROPHILS 1 %; BASOPHILS % (MANUAL) 1 %; EOSINOPHILS % (MANUAL) 13 %; LYMPHOCYTES % (MANUAL) 25 %; MONOCYTES % (MANUAL) 11 %; NEUTROPHILS % (MANUAL) 49 %
== END ==
LOC: LAB FS 14:43
PROVIDERS: ATTEND Pediatrics
DX: G04.90 Encephalitis and encephalomyelitis, unspecified (principal); G06.0 Intracranial abscess and granuloma; G93.41 Metabolic encephalopathy; C79.31 Secondary malignant neoplasm of brain
CPT/HCPCS: 36415; 80053; 85007; 85027; 85652

== ENCOUNTER → 2019-03-04 | Outpatient (CLI) | payer MEDICARE, MEDICAID ==
[2019-03-04 17:16] LABS: BUN/CREATININE RATIO 24; CARBON DIOXIDE 22 MMOL/L (21-32); CHLORIDE 109 MMOL/L (98-107); CREATININE SERUM 0.86 MG/DL (0.60-1.30); GFR ESTIMATED > 60; POTASSIUM 5.2 MMOL/L (3.6-5.0); SODIUM 142 MMOL/L (135-145)
[2019-03-04 17:17] LABS: ALANINE AMINOTRANSFERASE 61 U/L (0-55); ALBUMIN 3.5 GM/DL (3.2-4.5); ALKALINE PHOSPHATASE 98 U/L (40-136); BILIRUBIN,TOTAL < 0.2 MG/DL (0.1-1.0); CALCIUM 8.9 MG/DL (8.5-10.1); GLUCOSE 61 MG/DL (70-105); TOTAL PROTEIN 6.2 GM/DL (6.4-8.2)
[2019-03-04 19:03] LABS: HEMATOCRIT 37 % (40-54); HEMOGLOBIN 11.5 G/DL (13.3-17.7); MEAN CORPUSCULAR HEMOGLOBIN 31 PG (25-34); MEAN CORPUSCULAR HGB CONC 32 G/DL (32-36); MEAN CORPUSCULAR VOLUME 97 FL (80-99); MEAN PLATELET VOLUME 10.4 FL (7.4-10.4); PLATELET COUNT 253 10^3/uL (130-400); RED CELL DISTRIBUTION WIDTH 13.7 % (10.0-14.5); WHITE BLOOD COUNT 6.8 10^3/uL (4.3-11.0)
[2019-03-04 19:04] LABS: BASOPHILS # (AUTO) 0.1 10^3/uL (0.0-0.1); BASOPHILS % (AUTO) 2 % (0-10); EOSINOPHILS # (AUTO) 1.4 10^3/uL (0.0-0.3); EOSINOPHILS % (AUTO) 21 % (0-10); ERYTHROCYTE SEDIMENTATION RATE 13 MM/HR (0-30); LYMPHOCYTES # (AUTO) 1.9 X 10^3 (1.0-4.0); LYMPHOCYTES % (AUTO) 27 % (12-44); MONOCYTES # (AUTO) 0.9 X 10^3 (0.0-1.0); MONOCYTES % (AUTO) 13 % (0-12); NEUTROPHILS # (AUTO) 2.5 X 10^3 (1.8-7.8); NEUTROPHILS % (AUTO) 37 % (42-75)
[2019-03-04 19:49] LABS: BAND NEUTROPHILS 1 %; BASOPHILS % (MANUAL) 0 %; EOSINOPHILS % (MANUAL) 20 %; LYMPHOCYTES % (MANUAL) 27 %; MONOCYTES % (MANUAL) 6 %; NEUTROPHILS % (MANUAL) 46 %
== END ==
LOC: LAB FS 15:59
PROVIDERS: ATTEND Internal Medicine Infectious Disease
DX: G06.0 Intracranial abscess and granuloma (principal)
CPT/HCPCS: 36415; 80053; 85007; 85027; 85652

== ENCOUNTER → 2019-03-11 | Outpatient (CLI) | payer MEDICARE, MEDICAID ==
[2019-03-11 12:58] LABS: BUN/CREATININE RATIO 20; CALCIUM 8.8 MG/DL (8.5-10.1); CARBON DIOXIDE 20 MMOL/L (21-32); CHLORIDE 112 MMOL/L (98-107); CREATININE SERUM 0.84 MG/DL (0.60-1.30); GFR ESTIMATED > 60; GLUCOSE 81 MG/DL (70-105); POTASSIUM 5.9 MMOL/L (3.6-5.0); SODIUM 140 MMOL/L (135-145)
[2019-03-11 12:59] LABS: ALANINE AMINOTRANSFERASE 35 U/L (0-55); ALBUMIN 3.5 GM/DL (3.2-4.5); ALKALINE PHOSPHATASE 94 U/L (40-136); BILIRUBIN,TOTAL < 0.2 MG/DL (0.1-1.0); TOTAL PROTEIN 6.4 GM/DL (6.4-8.2)
[2019-03-11 13:57] LABS: EOSINOPHILS % (AUTO) 21 % (0-10); HEMATOCRIT 36 % (40-54); HEMOGLOBIN 11.4 G/DL (13.3-17.7); LYMPHOCYTES % (AUTO) 24 % (12-44); MEAN CORPUSCULAR HEMOGLOBIN 30 PG (25-34); MEAN CORPUSCULAR HGB CONC 32 G/DL (32-36); MEAN CORPUSCULAR VOLUME 96 FL (80-99); MEAN PLATELET VOLUME 10.3 FL (7.4-10.4); MONOCYTES % (AUTO) 14 % (0-12); NEUTROPHILS % (AUTO) 40 % (42-75); PLATELET COUNT 236 10^3/uL (130-400); RED CELL DISTRIBUTION WIDTH 13.1 % (10.0-14.5); WHITE BLOOD COUNT 7.7 10^3/uL (4.3-11.0)
[2019-03-11 13:58] LABS: BASOPHILS # (AUTO) 0.1 10^3/uL (0.0-0.1); BASOPHILS % (AUTO) 1 % (0-10); EOSINOPHILS # (AUTO) 0.6 10^3/uL (0.0-0.3); LYMPHOCYTES # (AUTO) 1.9 X 10^3 (1.0-4.0); NEUTROPHILS # (AUTO) 3.1 X 10^3 (1.8-7.8)
[2019-03-11 14:00] LABS: BAND NEUTROPHILS 1 %; BASOPHILS % (MANUAL) 1 %; EOSINOPHILS % (MANUAL) 23 %; LYMPHOCYTES % (MANUAL) 29 %; MONOCYTES % (MANUAL) 7 %; NEUTROPHILS % (MANUAL) 39 %
== END ==
LOC: LAB FS 11:32
PROVIDERS: ATTEND Internal Medicine Infectious Disease
DX: A41.9 Sepsis, unspecified organism (principal)
CPT/HCPCS: 36415; 80053; 85007; 85027

== ENCOUNTER → 2019-03-13 | Outpatient (CLI) | payer MEDICARE, MEDICAID ==
[2019-03-14 09:41] LABS: BUN/CREATININE RATIO 20; CALCIUM 8.5 MG/DL (8.5-10.1); CARBON DIOXIDE 23 MMOL/L (21-32); CHLORIDE 110 MMOL/L (98-107); GFR ESTIMATED > 60; GLUCOSE 107 MG/DL (70-105); POTASSIUM 5.4 MMOL/L (3.6-5.0); SODIUM 141 MMOL/L (135-145)
== END ==
LOC: RAD FS 16:14
PROVIDERS: ATTEND Internal Medicine Infectious Disease
DX: A41.9 Sepsis, unspecified organism (principal)
CPT/HCPCS: 36415; 80048; 85652

== ENCOUNTER → 2019-03-18 | Outpatient (CLI) | payer MEDICARE, MEDICAID ==
[2019-03-18 15:41] LABS: HEMATOCRIT 34 % (40-54); HEMOGLOBIN 10.8 G/DL (13.3-17.7); LYMPHOCYTES % (AUTO) 29 % (12-44); MEAN CORPUSCULAR HEMOGLOBIN 30 PG (25-34); MEAN CORPUSCULAR HGB CONC 32 G/DL (32-36); MEAN CORPUSCULAR VOLUME 92 FL (80-99); MEAN PLATELET VOLUME 10.5 FL (7.4-10.4); NEUTROPHILS % (AUTO) 34 % (42-75); PLATELET COUNT 245 10^3/uL (130-400); RED CELL DISTRIBUTION WIDTH 12.6 % (10.0-14.5); WHITE BLOOD COUNT 7.4 10^3/uL (4.3-11.0)
[2019-03-18 15:42] LABS: BASOPHILS # (AUTO) 0.1 10^3/uL (0.0-0.1); BASOPHILS % (AUTO) 2 % (0-10); EOSINOPHILS # (AUTO) 1.7 10^3/uL (0.0-0.3); EOSINOPHILS % (AUTO) 23 % (0-10); LYMPHOCYTES # (AUTO) 2.2 X 10^3 (1.0-4.0); MONOCYTES # (AUTO) 0.9 X 10^3 (0.0-1.0); MONOCYTES % (AUTO) 12 % (0-12); NEUTROPHILS # (AUTO) 2.6 X 10^3 (1.8-7.8)
[2019-03-18 15:59] LABS: BAND NEUTROPHILS 0 %; BASOPHILS % (MANUAL) 1 %; EOSINOPHILS % (MANUAL) 19 %; LYMPHOCYTES % (MANUAL) 28 %; MONOCYTES % (MANUAL) 11 %; NEUTROPHILS % (MANUAL) 41 %; POIKILOCYTOSIS SLIGHT
[2019-03-18 16:00] LABS: ERYTHROCYTE SEDIMENTATION RATE 21 MM/HR (0-30)
[2019-03-18 17:03] LABS: CHLORIDE 112 MMOL/L (98-107); POTASSIUM 4.7 MMOL/L (3.6-5.0); SODIUM 142 MMOL/L (135-145)
[2019-03-18 17:04] LABS: ALANINE AMINOTRANSFERASE 21 U/L (0-55); ALBUMIN 3.6 GM/DL (3.2-4.5); ALKALINE PHOSPHATASE 100 U/L (40-136); BILIRUBIN,TOTAL 0.2 MG/DL (0.1-1.0); BUN/CREATININE RATIO 25; CARBON DIOXIDE 20 MMOL/L (21-32); CREATININE SERUM 0.87 MG/DL (0.60-1.30); GFR ESTIMATED > 60; GLUCOSE 122 MG/DL (70-105); TOTAL PROTEIN 6.4 GM/DL (6.4-8.2)
== END ==
LOC: LAB FS 14:56
PROVIDERS: ATTEND Internal Medicine Infectious Disease
DX: A41.9 Sepsis, unspecified organism (principal)
CPT/HCPCS: 36415; 80053; 85007; 85027; 85652

== ENCOUNTER → 2019-03-26 | Outpatient (CLI) | payer MEDICARE, MEDICAID ==
[2019-03-26 12:04] LABS: HEMATOCRIT 34 % (40-54); HEMOGLOBIN 11.2 G/DL (13.3-17.7); MEAN CORPUSCULAR HEMOGLOBIN 30 PG (25-34); MEAN CORPUSCULAR HGB CONC 33 G/DL (32-36); MEAN CORPUSCULAR VOLUME 92 FL (80-99); MEAN PLATELET VOLUME 10.8 FL (7.4-10.4); PLATELET COUNT 254 10^3/uL (130-400); RED CELL DISTRIBUTION WIDTH 12.8 % (10.0-14.5); WHITE BLOOD COUNT 6.8 10^3/uL (4.3-11.0)
[2019-03-26 12:05] LABS: BASOPHILS # (AUTO) 0.1 10^3/uL (0.0-0.1); BASOPHILS % (AUTO) 1 % (0-10); EOSINOPHILS # (AUTO) 1.2 10^3/uL (0.0-0.3); EOSINOPHILS % (AUTO) 18 % (0-10); LYMPHOCYTES # (AUTO) 1.8 X 10^3 (1.0-4.0); LYMPHOCYTES % (AUTO) 26 % (12-44); MONOCYTES # (AUTO) 1.2 X 10^3 (0.0-1.0); MONOCYTES % (AUTO) 17 % (0-12); NEUTROPHILS # (AUTO) 2.5 X 10^3 (1.8-7.8); NEUTROPHILS % (AUTO) 37 % (42-75)
[2019-03-26 12:08] LABS: ALANINE AMINOTRANSFERASE 16 U/L (0-55); ALKALINE PHOSPHATASE 99 U/L (40-136); BILIRUBIN,TOTAL < 0.2 MG/DL (0.1-1.0); BUN/CREATININE RATIO 22; CALCIUM 8.7 MG/DL (8.5-10.1); CARBON DIOXIDE 22 MMOL/L (21-32); CHLORIDE 110 MMOL/L (98-107); CREATININE SERUM 0.77 MG/DL (0.60-1.30); GFR ESTIMATED > 60; GLUCOSE 77 MG/DL (70-105); POTASSIUM 5.3 MMOL/L (3.6-5.0); SODIUM 141 MMOL/L (135-145); TOTAL PROTEIN 6.3 GM/DL (6.4-8.2)
[2019-03-26 12:09] LABS: ALBUMIN 3.6 GM/DL (3.2-4.5)
[2019-03-26 12:21] LABS: BAND NEUTROPHILS 0 %; BASOPHILS % (MANUAL) 2 %; EOSINOPHILS % (MANUAL) 17 %; LYMPHOCYTES % (MANUAL) 24 %; MONOCYTES % (MANUAL) 14 %; NEUTROPHILS % (MANUAL) 43 %
[2019-03-26 12:22] LABS: ACANTHOCYTES SLIGHT; ERYTHROCYTE SEDIMENTATION RATE 17 MM/HR (0-30)
== END ==
LOC: LAB FS 11:19
PROVIDERS: ATTEND Internal Medicine Infectious Disease
DX: A41.9 Sepsis, unspecified organism (principal)
CPT/HCPCS: 36415; 80053; 85007; 85027; 85652

== ENCOUNTER 2019-04-02 23:31 | Emergency (ER) | payer MEDICARE, MEDICAID ==
[~2019-04-02] VITALS: Ht 185 cm; Wt 96.0 kg
--- NOTE | 2019-04-03 00:04 | ED General ---
General Stated Complaint: PIC LINE ISSUES Source of Information: Patient, Family (ex- and son) Exam Limitations: No Limitations History of Present Illness Date Seen by Provider: Apr 02, 2019 Time Seen by Provider: 23:54 Initial Comments Patient presents to the ER by private conveyance with chief complaint of inability to flush or put meropenem through his PICC line. 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 He had a last accessed around 1400 today and then home health nurse change the dressing and it will not work so he could not get his evening dose. He is not having any fevers chills pain nausea vomiting. Allergies and Home Medications Allergies Coded Allergies: No Known Drug Allergies (Unverified , 10/29/18) Patient Home Medication List Home Medication List Reviewed: Yes Review of Systems Review of Systems Constitutional: No chills, No diaphoresis, No fever, No malaise EENTM: No ear discharge, No ear pain Respiratory: No cough, No phlegm, No short of breath Cardiovascular: No chest pain, No edema Gastrointestinal: No abdominal pain, No nausea, No vomiting Genitourinary: No discharge, No dysuria Past Wqnojyl-Kswoja-Nhcfvc Hx Patient Social History Alcohol Use: Denies Use Recreational Drug Use: No 2nd Hand Smoke Exposure: No Recent Foreign Travel: No Contact w/Someone Who Travel: No Recent Hopitalizations: No Seasonal Allergies Seasonal Allergies: No Past Medical History Surgeries: Yes (right half lung lobectomy ) Appendectomy, Tonsillectomy Respiratory: Yes (right lung lobectomy) Cardiac: Yes High Cholesterol, Hypertension Neurological: Yes Seizure Disorder Genitourinary: Yes Prostate Problems Gastrointestinal: Yes Gastroesophageal Reflux Musculoskeletal: No Endocrine: No HEENT: No Cancer: No Psychosocial: No Integumentary: No Blood Disorders: No Physical Exam Vital Signs Capillary Refill : Height, Weight, BMI Height: 6'2.00" Weight: 200lbs. 0.0oz. [id number]; BMI Method:Stated General Appearance: No Apparent Distress, Chronically ill Eyes: Bilateral Eye Normal Inspection, Bilateral Eye EOMI HEENT: Moist Mucous Membranes, Other (edentulous) Neck: Full Range of Motion, Normal Inspection Respiratory: No Accessory Muscle Use, No Respiratory Distress Cardiovascular: Regular Rate, Rhythm, Normal Peripheral Pulses Neurologic/Psychiatric: Alert, Oriented x3 Skin: Normal Color, Warm/Dry Progress/Results/Core Measures Suspected Sepsis SIRS Temperature: Pulse: Respiratory Rate: Blood Pressure / Mean: Results/Orders Vital Signs/I&O Capillary Refill : Progress Note : Time: 00:02 Progress Note Nursing staff noted that under the dressing was applied today the exposed PICC line has a kink in it which is probably the reason why it will not flush. Using appropriate technique nursing staff will replace a sterile dressing. Departure Impression Primary Impression: Occluded PICC line Qualified Codes: T82.898A - Other specified complication of vascular prosthetic devices, implants and grafts, initial encounter Disposition: 01 HOME, SELF-CARE Condition: Stable Departure-Patient Inst. Decision time for Depature: 00:10 Referrals: GIANNI STANFORD MD (PCP/Family) Primary Care Physician Patient Instructions: Central Line Catheter (DC) Add. Discharge Instructions: Continue to use the PICC line as previously prescribed. JAYLA BAIG Apr 03, 2019 00:04 POS
[2019-04-03 00:19] VITALS: BP 164/73
== END 2019-04-03 00:21 | disposition home or self-care (01) ==
LOC: EDUNIT# 23:31 → ER 23:33
DX: T82.898A Other specified complication of vascular prosthetic devices, implants and grafts, initial encounter (principal); I10 Essential (primary) hypertension; E78.00 Pure hypercholesterolemia, unspecified; G40.909 Epilepsy, unspecified, not intractable, without status epilepticus; K21.9 Gastro-esophageal reflux disease without esophagitis; Z90.49 Acquired absence of other specified parts of digestive tract; Z90.89 Acquired absence of other organs
CPT/HCPCS: 99282

== ENCOUNTER → 2019-04-02 | Outpatient (CLI) | payer MEDICARE, MEDICAID ==
[2019-04-02 18:50] LABS: BASOPHILS # (AUTO) 0.1 10^3/uL (0.0-0.1); BASOPHILS % (AUTO) 1 % (0-10); EOSINOPHILS # (AUTO) 1.7 10^3/uL (0.0-0.3); EOSINOPHILS % (AUTO) 23 % (0-10); HEMATOCRIT 32 % (40-54); HEMOGLOBIN 10.5 G/DL (13.3-17.7); LYMPHOCYTES # (AUTO) 2.3 X 10^3 (1.0-4.0); LYMPHOCYTES % (AUTO) 31 % (12-44); MEAN CORPUSCULAR HEMOGLOBIN 30 PG (25-34); MEAN CORPUSCULAR HGB CONC 33 G/DL (32-36); MEAN CORPUSCULAR VOLUME 91 FL (80-99); MEAN PLATELET VOLUME 10.8 FL (7.4-10.4); MONOCYTES # (AUTO) 1.1 X 10^3 (0.0-1.0); MONOCYTES % (AUTO) 14 % (0-12); NEUTROPHILS # (AUTO) 2.4 X 10^3 (1.8-7.8); NEUTROPHILS % (AUTO) 31 % (42-75); PLATELET COUNT 249 10^3/uL (130-400); RED CELL DISTRIBUTION WIDTH 12.8 % (10.0-14.5); WHITE BLOOD COUNT 7.6 10^3/uL (4.3-11.0)
[2019-04-02 19:01] LABS: ALANINE AMINOTRANSFERASE 19 U/L (0-55); ALBUMIN 3.7 GM/DL (3.2-4.5); ALKALINE PHOSPHATASE 129 U/L (40-136); BILIRUBIN,TOTAL 0.2 MG/DL (0.1-1.0); BUN/CREATININE RATIO 21; CALCIUM 8.7 MG/DL (8.5-10.1); CARBON DIOXIDE 22 MMOL/L (21-32); CHLORIDE 108 MMOL/L (98-107); CREATININE SERUM 0.81 MG/DL (0.60-1.30); GFR ESTIMATED > 60; GLUCOSE 83 MG/DL (70-105); POTASSIUM 4.4 MMOL/L (3.6-5.0); SODIUM 141 MMOL/L (135-145); TOTAL PROTEIN 6.4 GM/DL (6.4-8.2)
[2019-04-02 19:13] LABS: ERYTHROCYTE SEDIMENTATION RATE 18 MM/HR (0-30)
== END ==
LOC: LAB FS 18:31
PROVIDERS: ATTEND Internal Medicine Infectious Disease
DX: A41.9 Sepsis, unspecified organism (principal)
CPT/HCPCS: 36415; 80053; 85025; 85652

== ENCOUNTER → 2019-04-08 | Outpatient (CLI) | payer MEDICARE, MEDICAID ==
[2019-04-08 12:00] LABS: HEMATOCRIT 33 % (40-54); HEMOGLOBIN 10.7 G/DL (13.3-17.7); MEAN CORPUSCULAR HEMOGLOBIN 30 PG (25-34); MEAN CORPUSCULAR HGB CONC 33 G/DL (32-36); MEAN CORPUSCULAR VOLUME 91 FL (80-99); PLATELET COUNT 237 10^3/uL (130-400); RED CELL DISTRIBUTION WIDTH 12.7 % (10.0-14.5); WHITE BLOOD COUNT 6.3 10^3/uL (4.3-11.0)
[2019-04-08 12:01] LABS: BASOPHILS # (AUTO) 0.1 10^3/uL (0.0-0.1); BASOPHILS % (AUTO) 1 % (0-10); EOSINOPHILS # (AUTO) 1.4 10^3/uL (0.0-0.3); EOSINOPHILS % (AUTO) 22 % (0-10); LYMPHOCYTES # (AUTO) 1.8 X 10^3 (1.0-4.0); LYMPHOCYTES % (AUTO) 29 % (12-44); MEAN PLATELET VOLUME 10.7 FL (7.4-10.4); MONOCYTES # (AUTO) 0.9 X 10^3 (0.0-1.0); MONOCYTES % (AUTO) 14 % (0-12); NEUTROPHILS # (AUTO) 2.1 X 10^3 (1.8-7.8); NEUTROPHILS % (AUTO) 33 % (42-75)
[2019-04-08 12:07] LABS: ALANINE AMINOTRANSFERASE 19 U/L (0-55); ALKALINE PHOSPHATASE 103 U/L (40-136); BILIRUBIN,TOTAL 0.2 MG/DL (0.1-1.0); BUN/CREATININE RATIO 23; CALCIUM 8.4 MG/DL (8.5-10.1); CARBON DIOXIDE 21 MMOL/L (21-32); CHLORIDE 111 MMOL/L (98-107); CREATININE SERUM 0.78 MG/DL (0.60-1.30); GFR ESTIMATED > 60; GLUCOSE 126 MG/DL (70-105); POTASSIUM 4.8 MMOL/L (3.6-5.0); SODIUM 145 MMOL/L (135-145)
[2019-04-08 12:08] LABS: ALBUMIN 3.5 GM/DL (3.2-4.5); TOTAL PROTEIN 6.1 GM/DL (6.4-8.2)
[2019-04-08 12:49] LABS: BAND NEUTROPHILS 1 %; BASOPHILS % (MANUAL) 2 %; EOSINOPHILS % (MANUAL) 21 %; LYMPHOCYTES % (MANUAL) 33 %; METAMYELOCYTES % 1 %; MONOCYTES % (MANUAL) 6 %; NEUTROPHILS % (MANUAL) 36 %
[2019-04-08 12:50] LABS: CRENATED RBC MODERATE
[2019-04-08 14:18] LABS: ERYTHROCYTE SEDIMENTATION RATE 19 MM/HR (0-30)
== END ==
LOC: LAB FS 11:29
PROVIDERS: ATTEND Internal Medicine Infectious Disease
DX: A41.9 Sepsis, unspecified organism (principal); J18.1 Lobar pneumonia, unspecified organism
CPT/HCPCS: 36415; 80053; 85007; 85027; 85652

== ENCOUNTER 2019-04-17 11:57 | Emergency (ER) | payer OTHER, MEDICARE, MEDICAID ==
[~2019-04-17] VITALS: Ht 185.4 cm; Wt 100.6 kg
--- NOTE | 2019-04-17 12:24 | ED General ---
General Chief Complaint: General Problems/Pain Stated Complaint: PIC LINE ISSUE Source of Information: Patient Exam Limitations: No Limitations History of Present Illness Date Seen by Provider: Apr 17, 2019 Time Seen by Provider: 12:21 Initial Comments To ER by private vehicle with reports of PICC line complication. He is been using a PICC line since November of this year (placed here) for intravenous antibiotics for brain abscesses. He completed therapy this week, home health nurse attempted to remove the catheter this morning and was only able to pull it out to the 26 cm ely. Looking at old records this was transient to the length of 46 cm upon insertion. Timing/Duration: 1-3 Hours Severity: Mild Associated Systoms: Denies Symptoms Allergies and Home Medications Allergies Coded Allergies: No Known Drug Allergies (Unverified , 10/29/18) Patient Home Medication List Home Medication List Reviewed: Yes Review of Systems Review of Systems Constitutional: see HPI EENTM: see HPI Respiratory: no symptoms reported Cardiovascular: no symptoms reported Genitourinary: no symptoms reported Musculoskeletal: see HPI Skin: no symptoms reported Psychiatric/Neurological: No Symptoms Reported Hematologic/Lymphatic: No Symptoms Reported Past Aqaizye-Mlzzhy-Wqnhrx Hx Patient Social History Alcohol Beverage of Choice: Beer, Whiskey Former Smoker, Quit: Mar 07, 2018 2nd Hand Smoke Exposure: No Recent Foreign Travel: No Contact w/Someone Who Travel: No Recent Hopitalizations: No Immunizations Up To Date Tetanus Booster (TDap): Less than 5yrs PED Vaccines UTD: Yes Seasonal Allergies Seasonal Allergies: No Past Medical History Surgeries: Yes (right half lung lobectomy ) Appendectomy, Tonsillectomy Respiratory: Yes (right lung lobectomy) Cardiac: Yes High Cholesterol, Hypertension Neurological: Yes Seizure Disorder Genitourinary: Yes Prostate Problems Gastrointestinal: Yes Gastroesophageal Reflux Musculoskeletal: No Endocrine: No HEENT: No Cancer: No Psychosocial: No Integumentary: No Blood Disorders: No Physical Exam Vital Signs Vital Signs - First Documented 04/17/19 12:05 Temp 35.9 Pulse 64 Resp 13 B/P (MAP) 158/72 (100) Pulse Ox 97 O2 Delivery Room Air Capillary Refill : Height, Weight, BMI Height: 6'2.00" Weight: 200lbs. 0.0oz. [id number]; 28.00 BMI Method:Stated General Appearance: No Apparent Distress, WD/WN Eyes: Bilateral Eye Normal Inspection, Bilateral Eye PERRL, Bilateral Eye EOMI Neck: Full Range of Motion, Normal Inspection Respiratory: No Accessory Muscle Use, No Respiratory Distress Extremity: Normal Capillary Refill, Normal Inspection, Other (there is a PICC line to the medial aspect of the right upper arm. When I tried to remove this any further there is some resistance. I don't want to pull any harder and risk tearing the catheter, taped in place and I did speak with Dr. Barnes from surgery who will be down to evaluate the patient.) Neurologic/Psychiatric: Alert, Oriented x3 Skin: Normal Color, Warm/Dry Progress/Results/Core Measures Suspected Sepsis SIRS Temperature: Pulse: Respiratory Rate: Blood Pressure / Mean: Results/Orders My Orders Orders - JLOEEN BARRERA APRN Humerus, Right, 2 Views (04/17/19 12:15) Chest 1 View, Ap/Pa Only (04/17/19 12:17) Vital Signs/I&O 04/17/19 12:05 Temp 35.9 Pulse 64 Resp 13 B/P (MAP) 158/72 (100) Pulse Ox 97 O2 Delivery Room Air Capillary Refill : Departure Communication (Admissions) 1334-Dr. Barnes came down and easily removed remaining catheter. Impression Primary Impression: PICC line complication Disposition: 01 HOME, SELF-CARE Condition: Stable Departure-Patient Inst. Decision time for Depature: 13:35 Referrals: GIANNI STANFORD MD (PCP/Family) Primary Care Physician Patient Instructions: NO INSTRUCTIONS GIVEN JOLEEN BARRERA APRN Apr 17, 2019 12:24 POS
--- NOTE | 2019-04-17 13:25 | Diagnostic Imaging Report ---
PATIENT HISTORY: PICC line displaced. TECHNIQUE: Frontal view of the chest COMPARISON: 11/29/2018 FINDINGS: The previously seen PICC line is no longer seen. Scarring and postsurgical changes are seen in the right lung. No pleural effusion or pneumothorax is seen. The cardiac silhouette is stable in size. IMPRESSION: 1. The previous right PICC line is no longer seen. 2. Scarring and postsurgical changes in the right lung. Dictated by: Dictated on workstation # [id number]
--- NOTE | 2019-04-17 13:26 | Diagnostic Imaging Report ---
INDICATION: PICC line placement. TIME OF EXAM: 1:05 PM FINDINGS: Two views of the right humerus demonstrate a PICC line with tip terminating at the level of the proximal humerus near the axilla. No definite kinking or interruption of the tubing is seen. Humerus appears to be intact. IMPRESSION: PICC line, as described. Dictated by: Dictated on workstation # [id number]
--- NOTE | 2019-04-17 13:30 | NUR ---
Dr. Barnes in room to remove picc line.
[2019-04-17 13:46] VITALS: BP 158/72
--- NOTE | 2019-04-17 15:22 | HISTORY AND PHYSICAL ---
DATE OF SERVICE: 04/17/2019 ATTENDING PRIMARY CARE PHYSICIAN: Dr. Garth Dalal. HISTORY OF PRESENT ILLNESS: The patient is a 68-year-old male who developed a brain abscess secondary to a dental abscess around 11/2018. He underwent a [place] hole as well as a biopsy and drainage. He has also been on antibiotics with meropenem and has had PICC lines placed; however, one was pulled out unintentionally and one became nonfunctional. At this time, he has completed his therapy with IV antibiotics and the nursing staff could not remove the PICC line and he was sent to the Emergency Department. Staff in the emergency room also noticed resistance as well. He is otherwise doing well, does not report any fever, no chills. He is tolerating a regular diet and appears to have normal mentation. PAST MEDICAL HISTORY: Hypertension, hypercholesterolemia, COPD, gastroesophageal reflux disease. Dental and brain abscess, and benign prostatic hypertrophy. PAST SURGICAL HISTORY: Appendectomy, tonsillectomy, and right lung upper lobectomy. ALLERGIES: No known drug allergies. MEDICATIONS: Home medications Reviewed. SOCIAL HISTORY: Previous smoker, negative alcohol. FAMILY HISTORY: Noncontributory. VITAL SIGNS: Temperature 35.9, blood pressure 158/72, pulse 64, respirations 13, and pulse ox 97% on room air. REVIEW OF SYSTEMS: A well-nourished male in no acute distress. He is not experiencing any shortness of breath or difficulty breathing. No chest pain, palpitations, diaphoresis. No nausea, vomiting. No diarrhea or constipation. No fever, chills, no recent inadvertent weight loss. All other review of systems negative. PHYSICAL EXAMINATION: CHEST: A few scattered rales and rhonchi bilaterally. HEART: Regular, no murmurs. EXTREMITIES: No lower extremity edema. Negative Homans sign. No upper extremity edema as well as no signs of a superficial thrombophlebitis. HEENT: No scleral icterus. NECK: No cervical lymphadenopathy. ABDOMEN: Soft, nontender, and nondistended. SKIN: Warm, dry. ASSESSMENT AND PLAN: A 68-year-old male with lodged right upper extremity PICC line. A chest x-ray was performed, which did show that the catheter is in the basilic vein; however, it has been pulled back and the tip appears to be in the actual vein and not in a central vein anymore. We will proceed with removal with constant direct resistance. PROCEDURE: The dressing and tape were removed and the insertion site was clean with no signs of redness, erythema and no palpable cords or pain to indicate any thrombophlebitis. With gentle and steady pressure the PICC line was pulled until the entirety of the catheter was removed intact. Good hemostasis was observed and the site was covered with sterile gauze. Job ID: [id number] DocumentID: [id number] Dictated Date: 04/17/2019 14:18:01 [employer] Operator Date: 04/17/2019 15:02:45 Dictated By: MELISSA VANG MD [facility]
== END 2019-04-17 13:45 | disposition home or self-care (01) ==
LOC: EDUNIT# 11:57 → ER 11:59
DX: T82.898A Other specified complication of vascular prosthetic devices, implants and grafts, initial encounter (principal); I10 Essential (primary) hypertension; E78.00 Pure hypercholesterolemia, unspecified; G40.909 Epilepsy, unspecified, not intractable, without status epilepticus; K21.9 Gastro-esophageal reflux disease without esophagitis; Z90.2 Acquired absence of lung [part of]; Z90.89 Acquired absence of other organs; Z90.49 Acquired absence of other specified parts of digestive tract; Z87.891 Personal history of nicotine dependence
CPT/HCPCS: 71045; 73060

== ENCOUNTER → 2019-04-17 | Outpatient (CLI) | payer MEDICARE, MEDICAID ==
[2019-04-17 13:05] LABS: HEMATOCRIT 35 % (40-54); HEMOGLOBIN 11.1 G/DL (13.3-17.7); MEAN CORPUSCULAR HEMOGLOBIN 29 PG (25-34); MEAN CORPUSCULAR HGB CONC 32 G/DL (32-36); MEAN CORPUSCULAR VOLUME 91 FL (80-99); WHITE BLOOD COUNT 7.4 10^3/uL (4.3-11.0)
[2019-04-17 13:06] LABS: BASOPHILS # (AUTO) 0.1 10^3/uL (0.0-0.1); BASOPHILS % (AUTO) 2 % (0-10); EOSINOPHILS # (AUTO) 1.2 10^3/uL (0.0-0.3); EOSINOPHILS % (AUTO) 16 % (0-10); LYMPHOCYTES # (AUTO) 2.2 X 10^3 (1.0-4.0); LYMPHOCYTES % (AUTO) 29 % (12-44); MONOCYTES # (AUTO) 1.1 X 10^3 (0.0-1.0); MONOCYTES % (AUTO) 15 % (0-12); NEUTROPHILS # (AUTO) 2.8 X 10^3 (1.8-7.8); NEUTROPHILS % (AUTO) 38 % (42-75); PLATELET COUNT 231 10^3/uL (130-400); RED CELL DISTRIBUTION WIDTH 12.8 % (10.0-14.5)
[2019-04-17 13:09] LABS: BILIRUBIN,TOTAL 0.2 MG/DL (0.1-1.0); BUN/CREATININE RATIO 21; CALCIUM 8.8 MG/DL (8.5-10.1); CARBON DIOXIDE 21 MMOL/L (21-32); CHLORIDE 108 MMOL/L (98-107); CREATININE SERUM 0.85 MG/DL (0.60-1.30); GFR ESTIMATED > 60; GLUCOSE 97 MG/DL (70-105); POTASSIUM 4.4 MMOL/L (3.6-5.0); SODIUM 142 MMOL/L (135-145)
[2019-04-17 13:10] LABS: ALANINE AMINOTRANSFERASE 16 U/L (0-55); ALBUMIN 3.9 GM/DL (3.2-4.5); ALKALINE PHOSPHATASE 89 U/L (40-136); TOTAL PROTEIN 6.7 GM/DL (6.4-8.2)
[2019-04-17 14:32] LABS: ATYPICAL LYMPHOCYTES 2 %; BAND NEUTROPHILS 4 %; BASOPHILS % (MANUAL) 2 %; EOSINOPHILS % (MANUAL) 13 %; LYMPHOCYTES % (MANUAL) 29 %; MONOCYTES % (MANUAL) 11 %; NEUTROPHILS % (MANUAL) 39 %; POIKILOCYTOSIS SLIGHT
[2019-04-17 14:33] LABS: ACANTHOCYTES SLIGHT; ERYTHROCYTE SEDIMENTATION RATE 16 MM/HR (0-30)
== END ==
LOC: LAB FS 11:16
PROVIDERS: ATTEND Internal Medicine Infectious Disease
DX: A41.9 Sepsis, unspecified organism (principal)
CPT/HCPCS: 36415; 80053; 85007; 85027; 85652